=== PATIENT | female | born 1990 | race African-American/Black ===

== ENCOUNTER 2021-04-05 19:56 | Inpatient (IN) ==
[2021-04-05] MEDS: LACTATED RINGERS 1,000 ML IV SCH ×2 (20:45→21:34)
[2021-04-05] MEDS ORDERED: ONDANSETRON 4 MG/2 ML VIAL IV PRN (20:57)
[2021-04-05] MEDS ORDERED: INFLUENZA VIRUS VACCINE 0.5 ML SYRINGE IM ONE (21:04)
[2021-04-05 21:09] LABS: Basophils % 0.3 % (0.0-0.8); Eosinophils # 0.1 10*3/uL (0.0-0.87); Eosinophils % 0.8 % (0.00-10.9); Hematocrit 25.3 VOL% (35.7-47.0); Hemoglobin 7.9 GM/DL (12.0-16.0); Immature Granulocytes % 0.6 %; Immature Granulocytes Absolute 0.06 #; Lymphocytes # 2.4 10*3/uL (1.4-4.0); Lymphocytes % 22.4 % (21.3-54.2); Mean Corpuscular HGB Conc 31.2 GM/DL (32-36); Mean Corpuscular Volume 82.1 FL (87-102); Mean Platelet Volume 11.7 FL (9.6-12.0); Monocytes % 7.1 % (1.7-12.7); NRBC # 0.04 10*3/uL; Neutrophils % 68.8 % (38.7-73.9); Platelet Count 170 T/CUMM (130-400); Red Blood Count 3.08 MC/CUMM (3.8-5.5); Red Cell Distribution Width 14.3 % (9.3-17.3); White Blood Count 10.8 T/CUMM (4-12)
[2021-04-05] MEDS ORDERED: ceFAZolin 2,000 MG/50 ML DUPLEX IV ONE (21:13)
[2021-04-05] MEDS ORDERED: CITRIC ACID/SODIUM CITRATE 30 ML UDCUP PO ONE (21:13)
[2021-04-05] MEDS ORDERED: diphenhydrAMINE 50 MG/1 ML VIAL IV PRN (21:26)
[2021-04-05] MEDS ORDERED: FAMOTIDINE 20 MG/2 ML VIAL IV ONE (21:26)
[2021-04-05] MEDS ORDERED: hydrOXYzine HCL 25 MG/1 ML VIAL IM PRN (21:26)
[2021-04-05] MEDS ORDERED: PROMETHAZINE 25 MG/1 ML VIAL IM PRN (21:26)
[2021-04-05 21:38] LABS: Alanine Aminotransferase < 6 U/L (13-56); Albumin 2.6 G/DL (3.4-5.0); Alkaline Phosphatase 264 U/L (45-117); Aspartate Amino Transferase 19 U/L (0-37); Bilirubin,Total < 0.39 MG/DL (0.20-1.00); Blood Urea Nitrogen 5 MG/DL (7-18); Calcium 8.8 MG/DL (8.5-10.1); Carbon Dioxide 23 MMOL/L (21-32); Estimated Glom Filtration Rate 155 ML/MIN; Glucose 80 MG/DL (74-106); Potassium 3.8 MMOL/L (3.5-5.1); Sodium 136 MMOL/L (136-145); Total Protein 6.4 G/DL (6.4-8.2)
[2021-04-05] MEDS ORDERED: TRANEXAMIC ACID 1,000 MG/10 ML VIAL ONE (21:46)
[2021-04-05] MEDS ORDERED: METHYLERGONOVINE 0.2 MG/1 ML AMP ONE (21:46)
[2021-04-05] MEDS ORDERED: BUPIVACAINE SPINAL 0.75% 2 ML AMP SPINAL ONE (21:47)
[2021-04-05] MEDS ORDERED: CARBOPROST TROMETHAMINE 250 MCG/ML AMP IM ONE (21:47)
[2021-04-05] MEDS ORDERED: LACTATED RINGERS 1,000 ML IV ONE (21:50)
[2021-04-05] MEDS ORDERED: METOCLOPRAMIDE 10 MG/2 ML VIAL ONE (21:50)
[2021-04-05] MEDS ORDERED: ONDANSETRON 4 MG/2 ML VIAL ONE (21:50)
[2021-04-05 22:08] LABS: HIV Antigen/Antibody Result Nonreactive (Nonreactive)
[2021-04-05] MEDS ORDERED: GLYCOPYRROLATE 0.4 MG/2 ML VIAL ONE (22:42)
[2021-04-05] MEDS ORDERED: PHENYLEPHRINE 1 MG/10 ML SYRINGE IV ONE (22:42)
[2021-04-05] MEDS ORDERED: KETOROLAC 30 MG/1 ML VIAL ONE (22:59)
[2021-04-05 23:05] LABS: Cord Arterial Blood HCO3 23.6 MMOL/L
[2021-04-05 23:06] LABS: Cord Venous Blood HCO3 21.4 MMOL/L; Cord Venous Blood PCO2 40.6 MMHG; Cord Venous Blood PO2 27.7
[2021-04-05 23:11] LABS: Cord Arterial Blood HCO3 25.4 MMOL/L
[2021-04-05 23:14] LABS: Cord Venous Blood HCO3 21.2 MMOL/L; Cord Venous Blood PO2 22.5
[2021-04-06] MEDS ORDERED: OXYTOCIN/LR 20 UNIT/1,000 ML BAG IV ONE (02:35)
[2021-04-06] MEDS: ACETAMINOPHEN 500 MG TABLET PO SCH ×4 (02:40→14:55)
[2021-04-06] MEDS: KETOROLAC 30 MG/1 ML VIAL IV SCH ×2 (05:02→11:53)
[2021-04-06 06:50] LABS: Hepatitis B Surface Ag Quant < 0.10 Index; Hepatitis B Surface Ag Result Non-Reactive (NonReactive)
[2021-04-06 06:54] LABS: Basophils % 0.1 % (0.0-0.8); Eosinophils # 0.1 10*3/uL (0.0-0.87); Eosinophils % 0.5 % (0.00-10.9); Hematocrit 20.1 VOL% (35.7-47.0); Immature Granulocytes % 0.4 %; Immature Granulocytes Absolute 0.06 #; Lymphocytes # 2.4 10*3/uL (1.4-4.0); Lymphocytes % 17.9 % (21.3-54.2); Mean Corpuscular HGB Conc 31.3 GM/DL (32-36); Mean Platelet Volume 11.1 FL (9.6-12.0); Monocytes % 5.5 % (1.7-12.7); Neutrophils % 75.6 % (38.7-73.9); Platelet Count 143 T/CUMM (130-400); Red Blood Count 2.45 MC/CUMM (3.8-5.5); Red Cell Distribution Width 14.3 % (9.3-17.3); White Blood Count 13.4 T/CUMM (4-12)
[2021-04-06 06:57] LABS: Hemoglobin 6.3 GM/DL (12.0-16.0)
[2021-04-06 07:20] LABS: Hypochromasia 1+
[2021-04-06] MEDS ORDERED: LANOLIN 50% CREAM 0.3 OZ TUBE TOP PRN (09:03)
[2021-04-06] MEDS ORDERED: BISACODYL 10 MG SUPP RECTAL PRN (09:03)
[2021-04-06] MEDS ORDERED: DIPH/TET/ACEL PERT BOOSTER VACCINE 0.5 ML VIAL IM ONE (09:03)
[2021-04-06] MEDS ORDERED: MEASLES/MUMPS/RUBELLA VACCINE 0.5 ML VIAL SUBCUT ONE (09:03)
[2021-04-06] MEDS ORDERED: BENZOCAINE 20%/MENTHOL 0.5% SPRAY 56 GM CAN TOP PRN (09:03)
[2021-04-06] MEDS ORDERED: HYDROCORTISONE 2.5% RECTAL CREAM 30 GM TUBE TOP PRN (09:03)
[2021-04-06] MEDS ORDERED: ACETAMINOPHEN 325 MG TABLET PO PRN (09:03)
[2021-04-06] MEDS ORDERED: WITCH HAZEL PADS 100/JAR TOP PRN (09:03)
[2021-04-06] MEDS ORDERED: oxyCODONE/ACETAMINOPHEN 5-325 MG TABLET PO PRN (09:03)
[2021-04-06] MEDS: DOCUSATE SODIUM 100 MG CAPSULE PO SCH ×2 (11:51→20:21)
[2021-04-06] MEDS: IRON (CARBONYL)/VIT C/B12/FA TABLET PO SCH (11:51)
[2021-04-06] MEDS ORDERED: diphenhydrAMINE CAP 25 MG CAPSULE PO PRN (15:14)
[2021-04-06] MEDS ORDERED: SODIUM CHLORIDE 0.9% 1,000 ML IV PRN (16:19)
[2021-04-06] MEDS: IBUPROFEN 800 MG TABLET PO PRN (20:22)
[2021-04-07 05:27] LABS: Basophils % 0.3 % (0.0-0.8); Eosinophils # 0.1 10*3/uL (0.0-0.87); Eosinophils % 0.6 % (0.00-10.9); Hematocrit 26.5 VOL% (35.7-47.0); Immature Granulocytes % 0.3 %; Immature Granulocytes Absolute 0.04 #; Lymphocytes # 2.7 10*3/uL (1.4-4.0); Lymphocytes % 23.6 % (21.3-54.2); Mean Corpuscular HGB Conc 32.1 GM/DL (32-36); Mean Corpuscular Volume 82.8 FL (87-102); Mean Platelet Volume 11.7 FL (9.6-12.0); Monocytes % 5.6 % (1.7-12.7); Neutrophils % 69.6 % (38.7-73.9); Platelet Count 159 T/CUMM (130-400); Red Cell Distribution Width 14.7 % (9.3-17.3); White Blood Count 11.6 T/CUMM (4-12)
[2021-04-07 05:31] LABS: Hemoglobin 8.5 GM/DL (12.0-16.0)
[2021-04-07] MEDS: IBUPROFEN 800 MG TABLET PO PRN (08:34)
[2021-04-07] MEDS: IRON (CARBONYL)/VIT C/B12/FA TABLET PO SCH (08:34)
[2021-04-07] MEDS: DOCUSATE SODIUM 100 MG CAPSULE PO SCH (08:34)
[2021-04-07 13:35] VITALS: BP 110/62
== END 2021-04-07 15:15 | disposition home or self-care (01) | DRG 787 ==
LOC: N.LDOUT 19:56 → N.LD 19:59 → N.OB 04-06 03:20
PROVIDERS: ADMIT Obstetrics & Gynecology; ATTEND Obstetrics & Gynecology
PROC: LDCSECT (ICD-10-PCS; 2021-04-05 22:00)